=== PATIENT | female | born 1960 | race American Indian/Alaskan Native ===

== ENCOUNTER 2017-11-14 10:06 | Emergency (ER) | payer MEDICARE ==
--- NOTE | 2017-11-14 15:52 | Emergency Department Report ---
Chief Complaint: Medical Clearance Stated Complaint: PAIN ALL OVER Time Seen by Provider: 11/14/17 15:46 - HPI History of Present Illness: States that she is in pain for 25 years, says it is chronic pain in the hips, back and neck. She states that she is on lyrica, zanaflex, and cymbalta. She was getting MS contin, hydrocodone. States that [place] went [place]. she has had epidurals in the past as well. She tried a heating pad, but she is in [facility], and states that the center will not let her use it. She had a head injury by slipping on the ice a couple of weeks ago, did have an LOC, had swelling, claims to have had some speech impediment ever since. She admits to being a former crack addict. - Exam Vital Signs: Vital Signs 11/14/17 10:58 Temperature 98.4 F Pulse Rate 75 Respiratory 16 Rate Blood Pressure 159/94 O2 Sat by Pulse 98 Oximetry Physical Exam: CBC, BMP, UA , UDS, ETOH level, ACET, ASA Level MSE screening note: Focused history and physical exam performed. Due to findings the following was ordered: ED Disposition for MSE Condition: Stable Referrals: PRIMARY CARE, [Primary Care Provider] - 3-5 Days
[2017-11-14] MEDS ORDERED: MORPHINE IM ONE (16:06)
[2017-11-14] MEDS ORDERED: ZOFRAN ODT PO ONE (16:06)
[2017-11-14 16:46] LABS: BUN/Creatinine Ratio 15; Blood Urea Nitrogen 9 mg/dL (7-17); Calcium 8.7 mg/dL (8.4-10.2); Hemolysis Index 32
--- NOTE | 2017-11-14 17:01 | Emergency Department Report ---
ED General Adult HPI - General Chief complaint: Medical Clearance Stated complaint: PAIN ALL OVER Time Seen by Provider: 11/14/17 15:46 Source: patient Mode of arrival: Ambulatory Limitations: No Limitations - History of Present Illness Initial comments: States that she is in pain for 25 years, says it is chronic pain in the hips, back and neck. She states that she is on lyrica, zanaflex, and cymbalta. She was getting MS contin, hydrocodone. [place] that [place]. she has had epidurals in the past as well. She tried a heating pad, but she is in [facility], and states that the center will not let her use it. She had a head injury by slipping on the ice a couple of weeks ago, did have an LOC, had swelling, claims to have had some speech impediment ever since. She admits to being a former crack addict. Onset/Timin -: week(s) Location: upper extremity Severity scale (0 -10): 5 Quality: aching Consistency: constant Improves with: none Worsens with: none Associated Symptoms: other (generalized joint pain ) Treatments Prior to Arrival: none - Related Data Previous Rx's Medication Instructions Recorded Last Taken Type DULoxetine [Cymbalta] 60 mg PO QDAY PRN #15 capsule 11/14/17 Unknown Rx Lidocaine [Lidocaine OINT] 1 applicatio TP TID PRN #1 tube 11/14/17 Unknown Rx Naproxen [Naprosyn TAB] 500 mg PO BID PRN #60 tablet 11/14/17 Unknown Rx Allergies Allergy/AdvReac Type Severity Reaction Status Date / Time No Known Allergies Allergy Verified 11/14/17 15:52 ED Review of Systems ROS: Stated complaint: PAIN ALL OVER Other details as noted in HPI Constitutional: denies: chills, fever Eyes: denies: eye pain, eye discharge, vision change ENT: denies: ear pain, throat pain Respiratory: denies: cough, shortness of breath, wheezing Cardiovascular: denies: chest pain, palpitations, dyspnea on exertion, edema, syncope, paroxysmal nocturnal dyspnea Endocrine: no symptoms reported Gastrointestinal: denies: abdominal pain, nausea, diarrhea Genitourinary: denies: urgency, dysuria, discharge Musculoskeletal: back pain, arthralgia, myalgia Skin: denies: rash, lesions Neurological: denies: headache, weakness, numbness, paresthesias, confusion, abnormal gait, vertigo Psychiatric: anxiety. denies: depression Hematological/Lymphatic: denies: easy bleeding, easy bruising ED Past Medical Hx - Past Medical History Previous Medical History?: Yes - Surgical History Past Surgical History?: Yes Additional Surgical History: spinal fusion - Social History Smoking Status: Never Smoker - Medications Home Medications: Home Medications Medication Instructions Recorded Confirmed Last Taken Type DULoxetine [Cymbalta] 60 mg PO QDAY PRN #15 capsule 11/14/17 Unknown Rx Lidocaine [Lidocaine OINT] 1 applicatio TP TID PRN #1 tube 11/14/17 Unknown Rx Naproxen [Naprosyn TAB] 500 mg PO BID PRN #60 tablet 11/14/17 Unknown Rx ED Physical Exam - General Limitations: No Limitations General appearance: alert, in no apparent distress - Head Head exam: Present: atraumatic, normocephalic - Eye Eye exam: Present: normal appearance, PERRL, EOMI Pupils: Present: normal accommodation - ENT ENT exam: Present: mucous membranes moist - Neck Neck exam: Present: normal inspection, full ROM. Absent: tenderness, meningismus, lymphadenopathy, thyromegaly - Respiratory Respiratory exam: Present: normal lung sounds bilaterally. Absent: respiratory distress, wheezes, rhonchi, stridor, chest wall tenderness - Cardiovascular Cardiovascular Exam: Present: regular rate, normal rhythm, normal heart sounds. Absent: systolic murmur, diastolic murmur, rubs, gallop - GI/Abdominal GI/Abdominal exam: Present: soft, normal bowel sounds. Absent: distended, tenderness, guarding, rebound, rigid, organomegaly, mass, bruit, pulsatile mass , hernia - Rectal Rectal exam: Present: deferred - Extremities Exam Extremities exam: Present: normal inspection, normal capillary refill. Absent: calf tenderness - Back Exam Back exam: Present: normal inspection, full ROM. Absent: tenderness, CVA tenderness (R), CVA tenderness (L), muscle spasm, paraspinal tenderness, vertebral tenderness, rash noted - Neurological Exam Neurological exam: Present: alert, oriented X3, CN II-XII intact, normal gait. Absent: motor sensory deficit, reflexes normal - Psychiatric Psychiatric exam: Present: normal affect, normal mood - Skin Skin exam: Present: warm, dry, intact, normal color. Absent: rash ED Course Vital Signs 11/14/17 11/14/17 10:58 16:58 Temperature 98.4 F Pulse Rate 75 Respiratory 16 20 Rate Blood Pressure 159/94 O2 Sat by Pulse 98 Oximetry ED Medical Decision Making - Lab Data Result diagrams: 11/14/17 16:12 11/14/17 16:12 Laboratory Tests 11/14/17 11/14/17 11/14/17 16:12 16:12 16:12 WBC 6.0 RBC 4.79 Hgb 13.3 Hct 39.8 MCV 83 MCH 28 MCHC 33 RDW 17.6 H Plt Count 334 Lymph % (Auto) 30.6 [place] % (Auto) 9.5 H Eos % (Auto) 5.1 H Baso % (Auto) 0.5 Lymph # 1.8 [place] # 0.6 Eos # 0.3 Baso # 0.0 Seg Neutrophils % 54.3 Seg Neutrophils # 3.2 Sodium 140 Potassium 4.1 Chloride 101.4 Carbon Dioxide 26 Anion Gap 17 BUN 9 Creatinine 0.6 L Estimated GFR > 60 BUN/Creatinine Ratio 15 Glucose 94 Calcium 8.7 TSH 0.289 Salicylates Acetaminophen Plasma/Serum Alcohol 11/14/17 11/14/17 11/14/17 16:12 16:12 16:12 WBC RBC Hgb Hct MCV MCH MCHC RDW Plt Count Lymph % (Auto) [place] % (Auto) Eos % (Auto) Baso % (Auto) Lymph # [place] # Eos # Baso # Seg Neutrophils % Seg Neutrophils # Sodium Potassium Chloride Carbon Dioxide Anion Gap BUN Creatinine Estimated GFR BUN/Creatinine Ratio Glucose Calcium TSH Salicylates < 0.3 L Acetaminophen < 15.0 Plasma/Serum Alcohol < 0.01 - Radiology Data Radiology results: report reviewed, image reviewed normal Chest Xray - Medical Decision Making Patient 57-year-old -[place] female is presents with generalized body aches patient has history of fibromyalgia patient states on Lyrica Cymbalta Zanaflex and liboderm pt states aching is 6/10 and she is out of medication labs normal chest x-ray normal EKG normal sinus rhythm no ST elevated [place] pain improve her Lortab and Zofran given in ED plan DC to home in Lidoderm gel naproxen patient will follow up with PCP or pain management for refill of pain management medications patient verbalizes understanding and agreement with same patient for DC to home in stable condition at this time. Critical care attestation.: If time is entered above; I have spent that time in minutes in the direct care of this critically ill patient, excluding procedure time. ED Disposition Clinical Impression: Fibromyalgia Chronic pain Qualifiers: Chronic pain type: chronic pain syndrome Qualified Code(s): G89.4 - Chronic pain syndrome Disposition: DC-01 TO HOME OR SELFCARE Is pt being admited?: No Does the pt Need Aspirin: No Condition: Good Instructions: Chronic Pain (ED) Prescriptions: DULoxetine [Cymbalta] 60 mg PO QDAY PRN #15 capsule PRN Reason: pain Lidocaine [Lidocaine OINT] 1 applicatio TP TID PRN #1 tube PRN Reason: Pain Naproxen [Naprosyn TAB] 500 mg PO BID PRN #60 tablet PRN Reason: Pain Referrals: IRLANDA PETIT MD [Staff Physician] - 3-5 Days Forms: Work/School Release Form(ED) Time of Disposition: 19:14
[2017-11-14 17:09] LABS: Basophils % (Auto) 0.5 % (0.0-1.8); Eosinophils # (Auto) 0.3 K/mm3 (0.0-0.4); Eosinophils % (Auto) 5.1 % (0.0-4.3); Hematocrit 39.8 % (30.3-42.9); Hemoglobin 13.3 gm/dl (10.1-14.3); Lymphocytes # (Auto) 1.8 K/mm3 (1.2-5.4); Lymphocytes % (Auto) 30.6 % (13.4-35.0); Mean Corpuscular HGB Conc 33 % (30-34); Mean Corpuscular Hemoglobin 28 pg (28-32); Mean Corpuscular Volume 83 fl (79-97); Monocytes # (Auto) 0.6 K/mm3 (0.0-0.8); Monocytes % (Auto) 9.5 % (0.0-7.3); Platelet Count 334 K/mm3 (140-440); Red Blood Count 4.79 M/mm3 (3.65-5.03); Red Cell Distribution Width 17.6 % (13.2-15.2)
--- NOTE | 2017-11-14 18:18 | XRay Report ---
FINAL REPORT EXAM: XR CHEST 1V AP HISTORY: Medical Clearance Psych TECHNIQUE: upright single view chest PRIORS: None. FINDINGS: Cardiac and mediastinal contours are unremarkable. No focal pulmonary infiltrate is identified. No pleural fluid collection seen. Pulmonary vasculature is unremarkable. IMPRESSION: Negative single-view chest
[2017-11-14 23:57] VITALS: BP 169/97
== END 2017-11-14 19:29 | disposition home or self-care (01) ==
LOC: ED 10:06
DX: M79.7 Fibromyalgia (principal); G89.29 Other chronic pain
CPT/HCPCS: 36415; 71045; 80048; 84443; 85025; 93005; 93010; 96372; 99284; G0480; J2270; 80320; Q0162

== ENCOUNTER 2017-11-19 00:39 | Emergency (ER) | payer MEDICARE ==
[2017-11-19 02:27] VITALS: BP 189/117
[2017-11-19] MEDS ORDERED: TYLENOL PO ONE (03:12)
[2017-11-19] MEDS ORDERED: TYLENOL ONE (03:13)
[2017-11-19 04:01] LABS: BUN/Creatinine Ratio 18; Blood Urea Nitrogen 14 mg/dL (7-17); Calcium 9.3 mg/dL (8.4-10.2); Hemolysis Index 29
[2017-11-19 04:07] LABS: Basophils % (Auto) 0.7 % (0.0-1.8); Eosinophils # (Auto) 0.2 K/mm3 (0.0-0.4); Eosinophils % (Auto) 3.6 % (0.0-4.3); Hematocrit 43.9 % (30.3-42.9); Hemoglobin 14.1 gm/dl (10.1-14.3); Lymphocytes # (Auto) 2.6 K/mm3 (1.2-5.4); Lymphocytes % (Auto) 42.3 % (13.4-35.0); Mean Corpuscular HGB Conc 32 % (30-34); Mean Corpuscular Hemoglobin 27 pg (28-32); Mean Corpuscular Volume 84 fl (79-97); Monocytes # (Auto) 0.7 K/mm3 (0.0-0.8); Monocytes % (Auto) 11.4 % (0.0-7.3); Platelet Count 379 K/mm3 (140-440); Red Blood Count 5.24 M/mm3 (3.65-5.03); Red Cell Distribution Width 17.9 % (13.2-15.2)
== END 2017-11-19 11:00 | disposition left against medical advice (07) ==
LOC: ED 00:39
DX: I10 Essential (primary) hypertension (principal); Z53.21 Procedure and treatment not carried out due to patient leaving prior to being seen by health care provider
CPT/HCPCS: 36415; 80048; 85025; 93005; 93010